=== PATIENT | female | born 1955 | race Caucasian/White ===

== ENCOUNTER 2025-06-04 13:00 | Day surgery (SDC) | payer BC, MEDICARE ==
[2025-06-04] MEDS: Lactated Ringers 1,000 ML IV SCH (13:42)
[2025-06-04] MEDS ORDERED: Midazolam 1 MG/ML 2 ML SDV ONE (13:44)
[2025-06-04] MEDS ORDERED: fentaNYL 100 MCG/2 ML SDV ONE (13:44)
[2025-06-04] MEDS ORDERED: Propofol 200 MG/20 ML SDV ONE ×3 (13:44→15:59)
== END 2025-06-04 16:59 | disposition home or self-care (01) ==
LOC: VM.SDS 13:00
PROVIDERS: ATTEND Family Medicine
DX: Z12.11 Encounter for screening for malignant neoplasm of colon (principal); D12.5 Benign neoplasm of sigmoid colon; D12.8 Benign neoplasm of rectum; K63.5 Polyp of colon; K74.60 Unspecified cirrhosis of liver; E66.9 Obesity, unspecified; Z68.29 Body mass index [BMI] 29.0-29.9, adult; Z86.0100 Personal history of colon polyps, unspecified; Z80.0 Family history of malignant neoplasm of digestive organs; Z88.8 Allergy status to other drugs, medicaments and biological substances; Z88.5 Allergy status to narcotic agent; Z79.899 Other long term (current) drug therapy
CPT/HCPCS: 00811; 88305; 99100; J2250; J2704; J3010; J7120

== ENCOUNTER 2025-09-07 06:29 | Day surgery (SDC) | payer BC, MEDICARE ==
[~2025-09-07 06:29] MED LIST: Dexamethasone/Neomycin/Polymyxin B Ophth Oint 3.5 GM Tube ONE; Lidocaine 1% 2 ML ONE; Phenyleprhine/Ketorolac 4 ML Vial ONE; Povidone-Iodine 5% Sterile Ophth Soln 30 ML Bottle ONE
[2025-09-07] MEDS ORDERED: Sodium Chloride 0.9% 10 ML Syringe FLUSH PRN (06:30)
[2025-09-07] MEDS: Cyclopentolate 1% Opth Soln 2 ML Bottle EYELF SCH (06:35)
[2025-09-07] MEDS: Moxifloxacin 0.5% Ophth Soln 3 ML Bottle EYELF ONE ×2 (06:55→07:37)
[2025-09-07] MEDS ORDERED: Midazolam 1 MG/ML 2 ML SDV ONE (07:28)
[2025-09-07] MEDS ORDERED: fentaNYL 100 MCG/2 ML SDV ONE (07:28)
[2025-09-07] MEDS: Povidone-Iodine 5% Sterile Ophth Soln 30 ML Bottle EYELF ONE (07:36)
[2025-09-07] MEDS: Lidocaine 1% PF 2 ML SDV INFILT ONE (07:38)
[2025-09-07] MEDS: Phenyleprhine/Ketorolac 4 ML Vial IOCULAR ONE (07:38)
[2025-09-07] MEDS: Balanced Salt Solution Ophth Irrig 500 ML Bottle IOCULAR ONE (07:38)
[2025-09-07] MEDS: Chondroitin Sulfate/Hyaluronate Sodium Ophth Inj 0.5 ML Syringe IOCULAR ONE (07:38)
[2025-09-07] MEDS: Dexamethasone/Neomycin/Polymyxin B Ophth Oint 3.5 GM Tube EYELF ONE (07:39)
[2025-09-07] MEDS: acetaZOLAMIDE 500 MG Cap.ER PO ONE (08:09)
== END 2025-09-07 08:50 | disposition home or self-care (01) ==
LOC: VM.SDS 06:29
PROVIDERS: ATTEND Ophthalmology
DX: H25.812 Combined forms of age-related cataract, left eye (principal); F17.210 Nicotine dependence, cigarettes, uncomplicated; N18.2 Chronic kidney disease, stage 2 (mild); Z79.899 Other long term (current) drug therapy
CPT/HCPCS: 66984; A9270; J0690; J1097; J2003; J2250; J3010; 00142; 99100; J3490